=== PATIENT | male | born 2000 | race Caucasian/White ===

== ENCOUNTER 2020-04-23 18:31 | Emergency (ER) | payer MEDICAID ==
[~2020-04-23] VITALS: Ht 175.3 cm; Wt 78.2 kg
[2020-04-23 18:35] VITALS: Ht 175.3 cm; Wt 78.2 kg
[2020-04-23 19:12] LABS: BILIRUBIN NEGATIVE (NEGATIVE); KETONE LARGE mg/dL (NEGATIVE); NITRITE NEGATIVE (NEGATIVE); UROBILINOGEN NORMAL (NORMAL)
[2020-04-23 19:24] LABS: UDS - AMPHET NEGATIVE QUAL (NEGATIVE); UDS - BARB NEGATIVE QUAL (NEGATIVE); UDS - BENZO NEGATIVE QUAL (NEGATIVE); UDS - COCAINE NEGATIVE QUAL (NEGATIVE); UDS - OPIATE NEGATIVE QUAL (NEGATIVE); UDS - PCP NEGATIVE QUAL (NEGATIVE); UDS - THC POSITIVE QUAL (NEGATIVE)
[2020-04-23 19:38] LABS: BASOPHILS 0.1 % (0-2); EOSINOPHILS 0.4 % (0-7); HEMOGLOBIN 17.5 g/dL (13.5-17.5); IMMATURE GRANULOCYTES 0.1 % (0-5); LYMPHOCYTES 17.4 % (15-50); MCH 30.1 pg (26.0-34.0); MCHC 34.3 g/dL (31.0-37.0); MCV 87.6 fL (80.0-100.0); MEAN PLATELET VOLUME 9.5 fL (7.4-10.4); MONOCYTES 5.4 % (2-11); NEUTROPHILS 76.6 % (40-80); PLATELET COUNT 273 10x3/uL (130-400); RBC 5.82 10x6/uL (4.20-6.10); RDW 13.4 % (11.5-14.5); WBC 8.4 10x3/uL (4.8-10.8)
--- NOTE | 2020-04-23 19:45 | NUR ---
DR. MERCADO NOTIFIED AND SITTER ORDERED. SITTER AT BEDSIDE. ATTENDING MD AND CHARGE NURSE NOTIFIED. RESOURCES PROVIDED. SAFETY PLAN COMPLETED.
[2020-04-23 19:49] LABS: CALC OSMOLALITY 272 mosm/kg (275-300); CALCIUM 9.7 mg/dL (8.5-10.1); CARBON DIOXIDE 26.3 mmol/L (21.0-32.0); CHLORIDE - SERUM 99 mmol/L (98-107); CREATININE - SERUM 1.2 mg/dL (0.6-1.3); POTASSIUM - SERUM 4.3 mmol/L (3.5-5.1); SODIUM 137 mmol/L (136-145); UREA NITROGEN 12 mg/dL (7-18); eGFR NON AFRICAN AMERICAN 83 mL/min (90-120)
[2020-04-23 19:51] LABS: GLUCOSE 72 mg/dL (74-106)
[2020-04-23 19:53] LABS: ALBUMIN 5.3 g/dL (3.4-5.0); ALKALINE PHOSPHATASE 71 U/L (30-120); ALT (SGPT) 20 U/L (10-68); BILIRUBIN - TOTAL 0.89 mg/dL (0.2-1.3); MAGNESIUM - SERUM 2.2 mg/dL (1.8-2.4); PROTEIN - SERUM 8.9 g/dL (6.4-8.2)
[2020-04-24 01:53] VITALS: BP 123/89
== END 2020-04-24 01:53 ==
LOC: D.ER 18:31
PROVIDERS: Family Medicine
DX: R44.0 Auditory hallucinations (principal); R45.1 Restlessness and agitation; K12.0 Recurrent oral aphthae; F12.10 Cannabis abuse, uncomplicated

== ENCOUNTER 2020-11-12 13:16 | Emergency (ER) | payer OTHER ==
[~2020-11-12] VITALS: Ht 175.3 cm; Wt 72.7 kg
[2020-11-12 13:22] VITALS: BP 110/75; Ht 175.3 cm; Wt 72.7 kg
[2020-11-12 14:32] LABS: BILIRUBIN NEGATIVE (NEGATIVE); KETONE NEGATIVE (NEGATIVE); NITRITE NEGATIVE (NEGATIVE); UROBILINOGEN NORMAL mg/dL (< 2)
[2020-11-12] MEDS ORDERED: VOLTAREN75 MG PO (15:01)
[2020-11-12] MEDS ORDERED: BACLOFEN20 M1 PO (15:01)
== END 2020-11-12 15:29 | disposition home or self-care (01) ==
LOC: D.ER 13:16
PROVIDERS: Family Medicine
DX: M54.5 Low back pain (principal); M79.10 Myalgia, unspecified site